=== PATIENT | female | born 1985 | race Caucasian/White ===

== ENCOUNTER 2016-09-22 22:08 | Emergency (ER) | payer MEDICARE, MEDICAID ==
[~2016-09-22 22:08] MED LIST: ABILIFY MAINTE400 M1 IM; AMOXICILLIN875 M1 PO; BALZIVA1 EACH PO; CHLORPROMAZINE100 M1 PO; CYCLOBENZAPRINE10 M1 PO; GEODON80 M1 PO; HYDROCODON-ACE1 EA16 PO; LIPITOR10 M1 PO; METHADONE PO; MULTI VITAMIN1 EACH PO; NAPROSYN500 MG PO; PERCOCET 5-3251 EACH PO; PROCTOCORT30 MG RC; PROMETHAZINE12.5 M2 PO; SYNTHROID112 MC1 PO; SYNTHROID50 MCG PO; SYNTHROID75 MCG PO; SYNTHROID88 MC1 PO; THORAZINE PO; TYLENOL325 M2 PO; ZOFRAN ODT4 MG PO; ZOFRAN4 M2 PO; [UNRECOGNIZED DRUG - OTHER] PO
[2016-09-22] MEDS ORDERED: SUBOXONE 8 MG-1 EAC2 SL (22:25)
[2016-09-22] MEDS ORDERED: INVEGA SUS156 MG/11 IM (22:29)
[2016-09-22] MEDS ORDERED: PROPRANOLOL HCL10 M1 PO (22:29)
[2016-09-22] MEDS ORDERED: OMEPRAZOLE20 M3 PO (22:29)
[2016-09-22] MEDS ORDERED: ADDERALL XR 1515 M1 PO (22:30)
[2016-09-22] MEDS ORDERED: [UNRECOGNIZED DRUG - REMARK] (22:30)
[2016-09-22 22:42] LABS: BASO % 0.5 % (0-2); BASO ABSOLUTE COUNT 0.1 tho/cmm (0.0-0.2); EOS % 3.8 % (0-7); EOSINOPHIL ABSOLUTE COUNT 0.4 tho/cmm (0.0-0.7); HCT-HEMATOCRIT 37.9 % (34.0-49.0); HGB-HEMOGLOBIN 12.4 gm/dl (12.0-15.5); IMMATURE GRANULOCYTES ABSOLUTE 0.02 tho/cmm (0-0.03); IMMATURE GRANULOCYTES PERCENT 0.2 % (0-0.3); LYMPH % 38.7 % (20-45); LYMPH ABSOLUTE COUNT 4.3 tho/cmm (0.8-4.5); MCH (MEAN CORPUSCULAR HGB) 28.6 pg (28.0-32.0); MCHC MEAN CORPUSCULAR HGB CONC 32.7 % (32.0-36.0); MCV (MEAN CELL VOLUME) 87.5 fl (82.0-96.0); MEAN PLATELET VOLUME 10.3 cmc (9.4-12.4); MONOCYTE ABSOLUTE COUNT 0.9 tho/cmm (0.0-1.2); NEUTROPHIL ABSOLUTE COUNT 5.5 tho/cmm (1.6-8.0); NEUTROPHIL-AUTOMATED 5.5 tho/cmm (1.6-8.0); NEUTROPHILS % 48.8 % (40-80); PLATELET COUNT 292 tho/cmm (150-450); RED BLOOD COUNT 4.33 mil/cmm (4.00-5.20); WHITE BLOOD COUNT 11.2 tho/cmm (4.0-10.0)
[2016-09-22 22:57] LABS: ALBUMIN 3.8 g/dl (3.5-5.0); ALKALINE PHOSPHATASE 97 U/L (33-138); ALT/SGPT 37 U/L (12-78); ANION GAP 11 mmol/L (0-20); AST/SGOT 35 U/L (10-40); BILIRUBIN,TOTAL 0.4 mg/dl (0-1.5); BLOOD UREA NITROGEN 15 mg/dl (6-24); CALCIUM 8.8 mg/dl (8.5-10.5); CARBON DIOXIDE-VENOUS 25 mmol/L (22-32); CHLORIDE 106 mmol/l (96-110); CREATININE 0.99 mg/dl (0.50-1.10); GLUCOSE 117 mg/dL (70-110); LIPASE 137 U/L (73-393); POTASSIUM 3.8 mmol/L (3.7-5.1); SODIUM 138 mmol/L (135-145); eGFR VALUE FOR BLACK 88 mL/Min
[2016-09-22 23:02] LABS: PREGNANCY-SERUM NEGATIVE (NEGATIVE)
[2016-09-23 00:42] LABS: URINE BILIRUBIN NEGATIVE (NEG); URINE BLOOD SMALL (NEG); URINE GLUCOSE (UA) NEGATIVE (NEG); URINE KETONE NEGATIVE (NEG); URINE LEUKOCYTE ESTERASE NEGATIVE (NEG); URINE NITRITE NEGATIVE (NEG); URINE PH 6.5 (5.0-8.0); URINE PROTEIN NEGATIVE (NEG)
[2016-09-23 00:45] LABS: URINE APPEARANCE CLEAR; URINE COLOR PALE YELLOW
[2016-09-23 00:49] LABS: URINE EPITHELIAL CELLS 0-2 /[HPF] (0-10); URINE RBC 0-1 /[HPF] (0-5); URINE WBC 0 /[HPF] (0-5)
== END 2016-09-23 01:41 ==
LOC: EDMED 22:08
PROVIDERS: Emergency Medicine
DX: N20.9 Urinary calculus, unspecified (principal); R73.9 Hyperglycemia, unspecified; F20.9 Schizophrenia, unspecified; F17.200 Nicotine dependence, unspecified, uncomplicated; Z90.49 Acquired absence of other specified parts of digestive tract; Z79.899 Other long term (current) drug therapy
CPT/HCPCS: J1885; J2405; J7030

== ENCOUNTER 2016-09-27 14:07 | Emergency (ER) | payer MEDICARE, MEDICAID ==
[~2016-09-27 14:07] MED LIST changes: +ADDERALL XR 1515 M1 PO; +INVEGA SUS156 MG/11 IM; +OMEPRAZOLE20 M3 PO; +PROPRANOLOL HCL10 M1 PO; +SUBOXONE 8 MG-1 EAC2 SL; +[UNRECOGNIZED DRUG - REMARK]
[2016-09-27] MEDS ORDERED: NORCO 5-325 TA1 EACH PO (15:08)
== END 2016-09-27 15:15 ==
LOC: EDMED 14:07
DX: M25.562 Pain in left knee (principal); M25.561 Pain in right knee; Z87.442 Personal history of urinary calculi; Z88.5 Allergy status to narcotic agent; Z88.6 Allergy status to analgesic agent; F17.210 Nicotine dependence, cigarettes, uncomplicated

== ENCOUNTER 2016-10-11 02:51 | Observation (INO) | payer MEDICARE, MEDICAID ==
[~2016-10-11 02:51] MED LIST changes: +NORCO 5-325 TA1 EACH PO
[2016-10-11 03:58] LABS: BASO % 0.6 % (0-2); BASO ABSOLUTE COUNT 0.1 tho/cmm (0.0-0.2); EOSINOPHIL ABSOLUTE COUNT 0.3 tho/cmm (0.0-0.7); HCT-HEMATOCRIT 40.6 % (34.0-49.0); HGB-HEMOGLOBIN 13.5 gm/dl (12.0-15.5); IMMATURE GRANULOCYTES ABSOLUTE 0.02 tho/cmm (0-0.03); IMMATURE GRANULOCYTES PERCENT 0.2 % (0-0.3); LYMPH % 42.1 % (20-45); LYMPH ABSOLUTE COUNT 3.6 tho/cmm (0.8-4.5); MCH (MEAN CORPUSCULAR HGB) 28.3 pg (28.0-32.0); MCHC MEAN CORPUSCULAR HGB CONC 33.3 % (32.0-36.0); MCV (MEAN CELL VOLUME) 85.1 fl (82.0-96.0); MEAN PLATELET VOLUME 10.5 cmc (9.4-12.4); MONO % 6.9 % (0-12); MONOCYTE ABSOLUTE COUNT 0.6 tho/cmm (0.0-1.2); NEUTROPHILS % 46.2 % (40-80); PLATELET COUNT 257 tho/cmm (150-450); RED BLOOD COUNT 4.77 mil/cmm (4.00-5.20); RED CELL DISTRIBUTION WIDTH 13.9 % (12.4-16.4); WHITE BLOOD COUNT 8.6 tho/cmm (4.0-10.0)
[2016-10-11 04:10] LABS: ALBUMIN 3.9 g/dl (3.5-5.0); ALKALINE PHOSPHATASE 112 U/L (33-138); ALT/SGPT 39 U/L (12-78); ANION GAP 11 mmol/L (0-20); AST/SGOT 21 U/L (10-40); BILIRUBIN,TOTAL 0.5 mg/dl (0-1.5); BLOOD UREA NITROGEN 13 mg/dl (6-24); CALCIUM 8.7 mg/dl (8.5-10.5); CARBON DIOXIDE-VENOUS 26 mmol/L (22-32); CHLORIDE 107 mmol/l (96-110); CREATININE 1.01 mg/dl (0.50-1.10); GLUCOSE 101 mg/dL (70-110); POTASSIUM 3.9 mmol/L (3.7-5.1); SODIUM 140 mmol/L (135-145); eGFR VALUE FOR BLACK 86 mL/Min
[2016-10-11 04:53] LABS: URINE BILIRUBIN NEGATIVE (NEG); URINE BLOOD SMALL (NEG); URINE GLUCOSE (UA) NEGATIVE (NEG); URINE KETONE NEGATIVE (NEG); URINE LEUKOCYTE ESTERASE NEGATIVE (NEG); URINE NITRITE NEGATIVE (NEG); URINE PROTEIN NEGATIVE (NEG); URINE SPECIFIC GRAVITY 1.015 (1.003-1.030)
[2016-10-11 04:58] LABS: URINE APPEARANCE CLEAR; URINE COLOR YELLOW
[2016-10-11 05:04] LABS: URINE BACTERIA 2+; URINE RBC 0-3 /[HPF] (0-5)
[2016-10-11] MEDS ORDERED: HYDROCODON-ACE1 EA16 PO (11:37)
[2016-10-13 09:21] LABS: TSH-THYROID STIMULATING HORM. 1.69 uIU/ml (0.40-3.80)
[2016-10-14] MEDS ORDERED: NEURONTIN300 M1 PO (16:25)
== END 2016-10-14 16:55 ==
LOC: EDMED 02:51 → EMR2 06:58 → CAR1 08:07
PROVIDERS: Physician Assistant; ADMIT Internal Medicine
PROC: 05H633Z Insertion of Infusion Device into Left Subclavian Vein, Percutaneous Approach (ICD-10-PCS; principal; 2016-10-11)
DX: G89.29 Other chronic pain (principal); M54.6 Pain in thoracic spine; M54.5 Low back pain; I25.10 Atherosclerotic heart disease of native coronary artery without angina pectoris; F41.9 Anxiety disorder, unspecified; R33.9 Retention of urine, unspecified; F20.9 Schizophrenia, unspecified; F43.10 Post-traumatic stress disorder, unspecified; F32.9 Major depressive disorder, single episode, unspecified; Z90.49 Acquired absence of other specified parts of digestive tract; Z98.890 Other specified postprocedural states; Z87.442 Personal history of urinary calculi; Z91.040 Latex allergy status; Z88.8 Allergy status to other drugs, medicaments and biological substances; Z88.6 Allergy status to analgesic agent; Z79.899 Other long term (current) drug therapy
CPT/HCPCS: A9577; C1751; G0378; G8978-GP-CL; G8979-GP-CK; G8980-GP-CL; J1885; J2060; J2270; J7030; P9612